=== PATIENT | male | born 1960 | race Caucasian/White ===

== ENCOUNTER 2020-09-19 06:59 | Outpatient (CLI) | payer MEDICARE, SELFPAY ==
[2020-09-19 07:25] LABS: Basophils Percent Auto 0.5 % (0.2-1.2); Eosinophils Absolute Auto 0.1 K/mm3 (0-0.3); Eosinophils Percent Auto 1.5 % (0-4.4); Hematocrit 48.4 % (42.0-52.0); Hemoglobin 16.4 g/dL (14.0-18.0); Immature Granulocyte Absolute 0.02 K/mm3 (0.00-0.031); Immature Granulocyte Percent A 0.3 % (0-0.5); Lymphocytes Absolute Auto 2.37 K/mm3 (0.9-3.2); Lymphocytes Percent Auto 40.4 % (18.3-44.2); Mean Corpuscular HGB Conc 33.9 g/dl (32-36); Mean Corpuscular Hemoglobin 30.4 pg (26-34); Mean Corpuscular Volume 89.6 fl (80-100); Mean Platelet Volume 8.8 fl (7.4-10.4); Monocytes Absolute Auto 0.5 K/mm3 (0.1-0.6); Monocytes Percent Auto 8.5 % (2.6-8.5); Neutrophils Absolute Auto 2.9 K/mm3 (1.3-6.7); Neutrophils Percent Auto 48.8 % (45.5-73.1); Platelet Count Result 195 k/mm3 (150-375); Red Cell Distribution Width 12.2 % (11.5-14.5); White Blood Count 5.9 K/mm3 (4.5-10.0)
[2020-09-19 07:39] LABS: Alanine Aminotransferase 14 U/L (4-50); Albumin Level 4.1 g/dL (3.5-5.1); Alkaline Phosphatase 73 U/L (38-126); Anion Gap 3 mmol/L (8-16); Aspartate Amino Transferase 23 U/L (17-59); Bilirubin,Total 0.5 mg/dL (0.2-1.3); Blood Urea Nitrogen 17 mg/dL (9-20); Calcium 9.1 mg/dL (8.4-10.2); Carbon Dioxide 31 mmol/L (22-30); Chloride 106 mmol/L (98-107); Estimated Glomerular Filt Rate > 60; Glucose 100 mg/dL (75-110); Potassium 4.3 mmol/L (3.4-5.0); Sodium 140 mmol/L (137-145)
[2020-09-19 08:08] LABS: Prostate Specific Antigen 1.8 ng/mL (< OR = 4.0)
== END 2020-09-19 07:00 | disposition home or self-care (01) ==
PROVIDERS: PCP Internal Medicine; Visit Provider Clinical Nurse Specialist
DX: M79.651 Pain in right thigh (principal); Z13.228 Encounter for screening for other metabolic disorders; Z12.5 Encounter for screening for malignant neoplasm of prostate
CPT/HCPCS: 36415; 80053; 84153; 85025; G0103

== ENCOUNTER 2020-10-01 09:31 | Outpatient (CLI) | payer MEDICARE, SELFPAY ==
--- NOTE | 2020-10-01 09:43 | EST_ITS ---
Patient Info Name: Jaun Molina Age: 60 years : 1960 Gender: Male Ht: 70 in Wt: 220 lbs BSA: 2.25 m2 Technical Quality: Good Exam Date: 10/01/2020 10:09 AM Exam Location: [facility] Patient Status: Outpatient Admit Date: 10/01/2020 Staff Ordering Physician: Valerie Limon NP Clinical Science Liaison: Zechariah Murrieta RDCS, RT Attending Provider: Referring Physician: Ashly MULLINS; Exercise Technologist: Blanche Calle CT Exercise Physician: Kendell Rivera DO Exam Type: CA stress echo Study Info Indications R07.89 - Other chest pain Treadmill exercise stress echocardiogram is performed. Summary 1. 1. Negative Jaun exercise stress test for ischemic ST changes by ECG criteria. 2. 2. Mildly reduced functional capacity, achieving 8.9 METs of workload. 3. 3. Appropriate HR response to exercise. 4. 4. Appropriate HR recovery at 1 minute post exercise. 5. 5. Negative stress echocardiogram for ischemia by wall motion analysis. 6. 6. Patient informed of the above results. Stress Echo Findings Left Ventricle Appropriate increase in LV endocardial thickeing with systole. Appropriate augmentation of contractility with systole. No wall motion abnormality. Left Ventricle Normal LV systolic function, no wall motion abnormality. Protocol: Jaun Stress ECG Details Stage: REST Duration (min): 9 min : 50 sec Speed (mph): 0.0 Grade (%): 0 HR (bpm): 79 SBP (mmHg): 120 DBP (mmHg): 72 METS: --- Stage: STAGE 1 Duration (min): 1 min : 0 sec Speed (mph): 1.7 Grade (%): 10 HR (bpm): 106 SBP (mmHg): 120 DBP (mmHg): 72 METS: --- Stage: STAGE 1 Duration (min): 2 min : 0 sec Speed (mph): 1.7 Grade (%): 10 HR (bpm): 114 SBP (mmHg): 120 DBP (mmHg): 72 METS: --- Stage: STAGE 1 Duration (min): 3 min : 0 sec Speed (mph): 1.7 Grade (%): 10 HR (bpm): 118 SBP (mmHg): 165 DBP (mmHg): 85 METS: --- Stage: STAGE 2 Duration (min): 1 min : 0 sec Speed (mph): 2.5 Grade (%): 12 HR (bpm): 125 SBP (mmHg): 165 DBP (mmHg): 85 METS: --- Stage: STAGE 2 Duration (min): 2 min : 0 sec Speed (mph): 2.5 Grade (%): 12 HR (bpm): 132 SBP (mmHg): 172 DBP (mmHg): 81 METS: --- Stage: STAGE 2 Duration (min): 3 min : 0 sec Speed (mph): 2.5 Grade (%): 12 HR (bpm): 137 SBP (mmHg): 172 DBP (mmHg): 81 METS: --- Stage: STAGE 3 Duration (min): 1 min : 0 sec Speed (mph): 3.4 Grade (%): 14 HR (bpm): 147 SBP (mmHg): 177 DBP (mmHg): 82 METS: --- Stage: STAGE 3 Duration (min): 1 min : 1 sec Speed (mph): 0.0 Grade (%): 0 HR (bpm): 146 SBP (mmHg): 177 DBP (mmHg): 82 METS: --- Stage: RECOVERY Duration (min): 0 min : 58 sec Speed (mph): 0.0 Grade (%): 0 HR (bpm): 115 SBP (mmHg): 177 DBP (mmHg): 82 METS: --- Stage: RECOVERY Duration (min): 1 min : 58 sec Speed (mph): 0
== END 2020-10-01 09:32 | disposition home or self-care (01) ==
PROVIDERS: PCP Internal Medicine; Visit Provider Nurse Practitioner
DX: R07.9 Chest pain, unspecified (principal)
CPT/HCPCS: 93351

== ENCOUNTER 2020-12-04 07:53 | Outpatient (CLI) | payer MEDICARE, SELFPAY ==
--- NOTE | ~2020-12-04 | MR_ITS ---
EXAMINATION: MR cervical spine wo con DATE: 12/04/2020 09:12 INDICATION: Cervical radiculopathy. TECHNIQUE: Magnetic resonance imaging (MRI) of the cervical spine was performed without intravenous c ontrast. Sequences included sagittal T2-weighted FSE, sagittal T2-weighted FS FSE, sagittal T1-weight ed FSE, axial MERGE, and axial T2-weighted FSE. COMPARISON: Cervical spine MRI 02/23/2019 FINDINGS: Bone alignment is normal. Vertebral body heights are normal. There is mildly decreased disc height at C4-C5 and moderately decreased disc height at C5-C6 and C6-C7. There is increased T2-weigh dajuan signal intensity in the spinal cord involving the north matter at C5-C6, consistent with myelomala sharif. The following disc levels are specifically discussed: C2-C3: The disc does not extend beyond the endplate margin. There is mild bilateral uncovertebral lisa nt osteoarthritis. There is mild bilateral facet joint osteoarthritis. There is no neural foraminal s tenosis. There is no central canal stenosis. C3-C4: The disc is bulging. There is moderate bilateral uncovertebral joint osteoarthritis. There is mild bilateral facet joint osteoarthritis. There is mild right and moderate left neural foraminal uri nosis. There is mild central canal stenosis. C4-C5: The disc is bulging. There is severe bilateral uncovertebral joint osteoarthritis. There is no facet joint osteoarthritis. There is moderate bilateral neural foraminal stenosis. There is moderate central canal stenosis with ventral and dorsal indentation of the spinal cord. C5-C6: The disc is bulging. There is severe bilateral uncovertebral joint osteoarthritis. There is no facet joint osteoarthritis. There is severe bilateral neural foraminal stenosis. There is moderate c entral canal stenosis with ventral and dorsal indentation of spinal cord. C6-C7: The disc is bulging. There is severe bilateral uncovertebral joint osteoarthritis. There is mo derate facet joint osteoarthritis. There is moderate bilateral neural foraminal stenosis. There is no central canal stenosis. C7-T1: The disc does not extend beyond the endplate margin. There is no uncovertebral joint osteoarth ritis. There is mild bilateral facet joint osteoarthritis. There is no neural foraminal stenosis. The re is no central canal stenosis. IMPRESSION: 1. Myelomalacia at C5-C6. 2. Severe cervical spondylosis, stable from 02/23/2019. Reviewed, dictated and finalized at location B.
== END 2020-12-04 07:54 | disposition home or self-care (01) ==
PROVIDERS: PCP Internal Medicine; Visit Provider Nurse Practitioner Adult Health
DX: G95.89 Other specified diseases of spinal cord (principal); M47.23 Other spondylosis with radiculopathy, cervicothoracic region; M48.03 Spinal stenosis, cervicothoracic region
CPT/HCPCS: 72141

== ENCOUNTER 2022-03-17 10:36 | Emergency (ER) | payer MEDICARE, SELFPAY ==
[2022-03-17] VITALS (12 sets, daily range): BP systolic 113–130; BP diastolic 77–87; PULSE 61–87; RESP 14–29; TEMP 36.6; O2SAT 97–100
--- NOTE | ~2022-03-17 | XR_ITS ---
EXAMINATION: XR hand RT min 3V DATE: 03/17/2022 12:13 INDICATION: Right hand pain and swelling. TECHNIQUE: 3 views of right hand were obtained. COMPARISON: Right knee radiographs 03/03/2006 FINDINGS: Bone alignment is normal. No fracture. There is mild osteoarthritis of distal radioulnar sandra int, second and third metacarpophalangeal joints, and some of the interphalangeal joints. IMPRESSION: 1. Mild polyarticular osteoarthritis. Reviewed, dictated and finalized at location A.
--- NOTE | 2022-03-17 10:42 | ECG_ITS ---
Measurements Intervals [place] Rate: 60 P: 25 WY: 144 QRS: -19 QRSD: 103 T: 27 QT: 395 QTc: 395 Interpretive Statements SINUS RHYTHM WITH SINUS ARRHYTHMIA NO PREVIOUS ECG AVAILABLE FOR COMPARISON Electronically Signed On 03-17-2022 12:40:37 CDT by Alberto Us M.D.
[2022-03-17 10:54] LABS: Basophils Percent Auto 0.3 % (0.2-1.2); Eosinophils Absolute Auto 0.1 K/mm3 (0-0.3); Eosinophils Percent Auto 0.5 % (0-4.4); Hematocrit 47.8 % (42.0-52.0); Hemoglobin 16.5 g/dL (14.0-18.0); Immature Granulocyte Absolute 0.02 K/mm3 (0.00-0.031); Immature Granulocyte Percent A 0.2 % (0-0.5); Lymphocytes Absolute Auto 2.82 K/mm3 (0.9-3.2); Lymphocytes Percent Auto 24.5 % (18.3-44.2); Mean Corpuscular HGB Conc 34.5 g/dl (32-36); Mean Corpuscular Hemoglobin 30.7 pg (26-34); Mean Corpuscular Volume 88.8 fl (80-100); Monocytes Absolute Auto 0.7 K/mm3 (0.1-0.6); Monocytes Percent Auto 6.2 % (2.6-8.5); Neutrophils Absolute Auto 7.9 K/mm3 (1.3-6.7); Neutrophils Percent Auto 68.3 % (45.5-73.1); Platelet Count Result 230 k/mm3 (150-375); Red Blood Count 5.38 M/mm3 (4.6-6.20); Red Cell Distribution Width 12.5 % (11.5-14.5); White Blood Count 11.5 K/mm3 (4.5-10.0)
[2022-03-17 11:51] LABS: Alanine Aminotransferase 20 U/L (6-50); Albumin Level 4.5 g/dL (3.5-5.1); Alkaline Phosphatase 86 U/L (38-126); Anion Gap 9 mmol/L (8-16); Aspartate Amino Transferase 28 U/L (17-59); Bilirubin,Total 0.6 mg/dL (0.2-1.3); Blood Urea Nitrogen 17 mg/dL (9-20); Calcium 9.7 mg/dL (8.4-10.2); Carbon Dioxide 26 mmol/L (22-30); Chloride 103 mmol/L (98-107); Estimated CRCL calculation 88 ml/min; Estimated Glomerular Filt Rate > 60; Glucose 97 mg/dL (65-110); Potassium 4.5 mmol/L (3.4-5.0); Sodium 138 mmol/L (137-145)
--- NOTE | 2022-03-17 11:59 | ED.SYNCOPE ---
HPI - Syncope General Chief Complaint: Syncope Stated Complaint: passed out, head injury Time Seen by Provider: 03/17/22 11:13 History of Present Illness HPI narrative: This is a 61-year-old male who denies past medical history, who presents emergency department after loss of consciousness last night. He states he was seated on the toilet, straining to have a bowel movement, when he stood, became lightheaded and flushed and lost consciousness. He states he woke on the floor after hitting his face in the shower. He states after short time, he was able to stand and walk on his own. He was evaluated by EMS at that time but was not brought to the emergency department. He currently complains of mild right hand pain and lower lip pain. Related Data Home Medications Medication Instructions Recorded Confirmed acetaminophen 500 mg tablet 500 mg PO Q6H PRN 07/28/19 10/02/20 (Tylenol Extra Strength) camphor-methyl salicylate-menthol applic topical 07/28/19 10/02/20 topical cream ibuprofen PO 08/23/19 10/02/20 naproxen sodium [Aleve] PO 08/23/19 10/02/20 Allergies Allergy/AdvReac Type Severity Reaction Status Date / Time No Known Allergies Allergy Verified 08/23/19 09:41 Review of Systems Review of Systems: CONSTITUTIONAL: Denies fever, chills, or sweats. EYES: Denies visual changes, redness, or discharge. ENT: Denies rhinorrhea, congestion, sore throat, or otalgia. CARDIOVASCULAR: Denies chest pain, palpitations, or edema. RESPIRATORY: Denies cough or dyspnea. GASTROINTESTINAL: Denies abdominal pain, nausea, vomiting, or diarrhea. GENITOURINARY: Denies dysuria or hematuria. SKIN: Denies rash or itching. MUSCULOSKELETAL: Right hand pain, denies back pain, joint pain, or myalgia. NEUROLOGIC: Denies headache, numbness, dizziness, or weakness. PSYCHIATRIC: Denies anxiety or depression. [facility] Past Medical History Medical History (Updated 03/18/22 @ 00:00 by Background Daemon) Arthritis of hip Degenerative disc disease Femur fracture, right Headache Hernia Nausea & vomiting Right thigh pain Varicose vein of leg Vision abnormalities Surgical History Surgical History (Updated 08/23/19 @ 15:28 by Emmy D. Avery, RT(R)) History of vascular surgery Lower extremity surgery planned Family History Family History Mother Patient's mother is in good health Father Family history unknown Sibling Family history of congestive heart failure Sibling Pancreatic cancer Social History Social History (Updated 08/23/19 @ 15:29 by Emmy Avery, RT(R)) Smoking status: Current some day smoker Tobacco type: cigars Alcohol intake: never Exam Narrative: GENERAL: Well-appearing, well-nourished, and in no acute distress. HEAD: Normocephalic, atraumatic. EYES: PERRLA and EOMI. ENT: Chipped right front incisor without r, healing mucosal laceration of the lower lip just right of midline without crossing the vermilion border, nares clear, no rhinorrhea or epistaxis. Mucous membranes moist. Oropharynx without tonsillar hypertrophy exudate or other lesions. NECK: Supple. No adenopathy or masses. No carotid bruits or JVD CHEST: Clear to auscultation. No respiratory distress. No wheezes rales or rhonchi HEART: Regular rate and rhythm. No murmur heard. Normal peripheral pulses. ABDOMEN: Soft, nontender, nondistended, normal active bowel sounds. EXTREMITIES: Normal range of motion. No edema. SKIN: Warm, dry, no rash. NEURO: No focal deficits. Alert and oriented x3. Strength 5 out of 5 in all extremities, sensation intact in all extremities PSYCH: Normal mood and affect. Course Vital Signs Vital signs: Vital Signs Temperature 97.9 F 03/17/22 10:42 Pulse Rate 77 03/17/22 10:42 Respiratory Rate 18 03/17/22 10:42 Blood Pressure 123/81 03/17/22 10:42 Pulse Oximetry 100 03/17/22 10:42 Oxygen Delivery Room Air 03/17/22 10:42 T
== END 2022-03-17 13:38 | disposition home or self-care (01) ==
PROVIDERS: Emergency Provider Preventive Medicine Aerospace Medicine; PCP Internal Medicine
DX: R55 Syncope and collapse (principal); S01.511A Laceration without foreign body of lip, initial encounter; M79.641 Pain in right hand; M16.10 Unilateral primary osteoarthritis, unspecified hip; F17.290 Nicotine dependence, other tobacco product, uncomplicated; M19.042 Primary osteoarthritis, left hand; W01.198A Fall on same level from slipping, tripping and stumbling with subsequent striking against other object, initial encounter
CPT/HCPCS: 36415; 73130; 80053; 85025; 93005; 99284

== ENCOUNTER 2022-04-01 06:41 | Outpatient (CLI) | payer MEDICARE, SELFPAY ==
--- NOTE | ~2022-04-01 | MR_ITS ---
EXAMINATION: MR brain/brain stem wo/w con DATE: 04/01/2022 07:36 INDICATION: Syncope. TECHNIQUE: Magnetic resonance imaging (MRI) of the brain and brainstem was performed without and with 20 mL MultiHance intravenous contrast. COMPARISON: Brain MRI 03/05/2017 FINDINGS: There are scattered areas of nonspecific increased T2-weighted signal intensity in the cere bral white matter, which is within normal limits for the patient's age. There is no intracranial hemo rrhage, acute infarction, or abnormal intracranial mass lesion. The ventricles are normal in size. Th ere is mild mucosal thickening in the ethmoid sinuses. The orbits are normal. The mastoid air cells a re normal. IMPRESSION: 1. Normal brain. Reviewed, dictated and finalized at location A. IMPRESSION: 1. Normal brain.
== END 2022-04-01 06:42 | disposition home or self-care (01) ==
PROVIDERS: PCP Internal Medicine; Visit Provider Clinical Nurse Specialist
DX: R55 Syncope and collapse (principal)
CPT/HCPCS: 70553; A9577

== ENCOUNTER 2022-04-07 09:31 | Outpatient (CLI) | payer MEDICARE, SELFPAY ==
--- NOTE | 2022-04-07 09:55 | ECHO_ITS ---
Patient Info Name: Jaun Molina Age: 61 years : 1960 Gender: Male Ht: 70 in Wt: 220 lbs BSA: 2.25 m2 HR: 63 bpm BP: 126 / 83 mmHg Technical Quality: Good Exam Date: 04/07/2022 10:16 AM Exam Location: [facility] Patient Status: Outpatient Admit Date: 04/07/2022 Staff Ordering Physician: Leigh Ann Cai Malted Milk Supervisor: Issac Taylor RDCS Attending Provider: Leigh Ann Cai Referring Physician: Trell MONTOYA; Exam Type: CA echo doppler color flow Study Info Indications R55 - Syncope and collapse Complete two-dimensional, color flow and Doppler transthoracic echocardiogram is performed. Summary 1. Complete two-dimensional, color flow and Doppler transthoracic echocardiogram is performed. 2. Left ventricular chamber dimension is normal. 3. Left ventricular systolic function is normal, estimated at 55-60%. 4. The left ventricular diastolic function is grade I diastolic dysfunction. 5. E/e' 6 is not elevated. Left Ventricle E/e' 6 is not elevated. Left ventricular chamber dimension is normal. Left ventricular systolic function is normal, estimated at 55-60%. The left ventricular diastolic function is grade I diastolic dysfunction. Right Ventricle Right ventricular systolic function is normal and with normal TAPSE 1.9 cm. Right ventricular chamber dimension is normal. Left Atria Left atrial chamber dimension is normal. Right Atria Right atrial chamber dimension is normal. Aortic Valve The aortic valve is trileaflet. There is no aortic valve stenosis. There is no aortic valve regurgitation. Pulmonic Valve There is no pulmonic regurgitation. Mitral Valve There is no mitral valve stenosis. There is no mitral valve regurgitation. Tricuspid Valve There is no tricuspid valve regurgitation. Pericardium/Pleural There is no pericardial effusion. Inferior Vena Cava Normal inferior vena cava with >50% collapse upon inspiration consistent with normal right atrial pressure, 5 mmHg. Aorta The aortic root size at the sinus of Valsalva is normal. Left Ventricular Outflow Tract Name Value Normal LVOT 2D LVOT Diameter 2.0 cm LVOT Doppler LVOT Peak Gradient 2 mmHg LVOT Mean Gradient 1 mmHg LVOT VTI 17 cm LVOT VTI/AV VTI Ratio 0.9 LVOT Stroke Volume 56 ml LVOT CO 3.4 l/min LVOT CI 1.5 l/min/m2 Mitral Valve Name Value Normal MV Doppler MV Peak Gradient 2 mmHg MV Mean Gradient 0 mmHg MV Decel [place] 282 cm/s2 MV PHT 43 ms MV Area (PHT) 5
== END 2022-04-07 09:32 | disposition home or self-care (01) ==
PROVIDERS: PCP Internal Medicine; Visit Provider Clinical Nurse Specialist
DX: R55 Syncope and collapse (principal)
CPT/HCPCS: 93306

== ENCOUNTER 2022-04-30 00:17 | Day surgery (SDC) | payer MEDICARE, SELFPAY ==
[2022-04-13 13:49] VITALS: BMI 31.6
--- NOTE | 2022-04-29 15:23 | PM.HPGS ---
History of Present Illness History of Present Illness Consent: Risks, benefits, and alternatives have been discussed and questions answered. Patient agrees to proceed with procedure. Chief complaint: hx of colon polyps Narrative: Jaun Molina is a 61 year old male here for colon cancer screening. Six years ago he had removal of 3 tubular adenomas. Review of Systems Review of Systems: All systems reviewed & are unremarkable except as noted in HPI and below PMFSH Past Medical History Medical History Arthritis of hip Degenerative disc disease Femur fracture, right Headache Hernia Nausea & vomiting Right thigh pain Varicose vein of leg Vision abnormalities Surgical History Surgical History History of vascular surgery Lower extremity surgery planned Family History Family History Mother Patient's mother is in good health Father Family history unknown Sibling Family history of congestive heart failure Sibling Pancreatic cancer Social History Social History Years smoked: 25 Smoking status: Current every day smoker Tobacco type: cigars Additional smoking assessment comments: 2 cigars a day Alcohol intake: never Substance use type: does not use Living arrangements: with family Spiritual care concerns: No Meds Home Medications and Allergies Home Medications Medication Instructions Recorded Confirmed Type acetaminophen 500 mg tablet 500 mg PO Q6H PRN Pain 07/28/19 04/13/22 History (Tylenol Extra Strength) camphor-methyl salicylate-menthol 1 applic topical DAILY 07/28/19 04/13/22 History topical cream ibuprofen 600 mg tablet 600 mg PO TID 04/13/22 04/13/22 History naproxen sodium 220 mg capsule 220 mg PO BID 04/13/22 04/13/22 History (Aleve) pregabalin 50 mg capsule 50 mg PO DAILY 04/13/22 04/13/22 History Allergies Allergy/AdvReac Type Severity Reaction Status Date / Time No Known Allergies Allergy Verified 04/30/22 07:36 Exam Const: General: alert Orientation/consciousness: patient oriented x3 Resp: Auscultation: clear to auscultation bilaterally Cardio: Rhythm: regular rhythm GI: GI Palp: Yes Soft to palpation and No Tenderness to palpation present (GI) Neuro: General: patient oriented x3 Assessment and Plan Assessment and plan (1) Screening for colon cancer: Code(s): Z12.11 - Encounter for screening for malignant neoplasm of colon Status: Acute Assessment and Plan: Colonoscopy with possible biopsy or polypectomy or cautery or injection of substances.
[2022-04-30 07:37] VITALS: BP 107/74; PULSE 75; RESP 18; TEMP 36.5; O2SAT 98
[2022-04-30] MEDS: LACTATED RINGERS 1,000 ML 150 ML IV CONT (07:45)
--- NOTE | 2022-04-30 08:12 | P.PNAN_ITS ---
Anes - Initial Pre Proc Eval Procedure: Operation Date: 04/30/22 08:30 Proposed Procedures p Screening Colonoscopy - Germán Berkowitz MD Date/Time: 04/30/22 08:12 Surgeon: Germán Berkowitz MD Pre Op Diagnosis: hx of colon polyps Patient Data Age: 61 Gender: M Height: 1.78 m Weight: 96.2 kg Last Vital Signs Temp 97.7 F 04/30/22 07:37 Pulse 75 04/30/22 07:37 Resp 18 04/30/22 07:37 BP 107/74 04/30/22 07:37 Pulse Ox 98 04/30/22 07:37 O2 Del Method Room Air 04/30/22 07:37 Allergies Allergy/AdvReac Type Severity Reaction Status Date / Time No Known Allergies Allergy Verified 04/30/22 07:36 Home Medications Medication Instructions Recorded Confirmed Type acetaminophen 500 mg tablet 500 mg PO Q6H PRN Pain 07/28/19 04/13/22 History (Tylenol Extra Strength) camphor-methyl salicylate-menthol 1 applic topical DAILY 07/28/19 04/13/22 History topical cream ibuprofen 600 mg tablet 600 mg PO TID 04/13/22 04/13/22 History naproxen sodium 220 mg capsule 220 mg PO BID 04/13/22 04/13/22 History (Aleve) pregabalin 50 mg capsule 50 mg PO DAILY 04/13/22 04/13/22 History Patient hx anesthesia problems: none Family hx anesthesia problems: none Results Review: All pre-operative results and documents have been reviewed as part of the pre- operative evaluation. [facility] Past Medical History Medical History Arthritis of hip Degenerative disc disease Femur fracture, right Headache Hernia Nausea & vomiting Right thigh pain Varicose vein of leg Vision abnormalities Surgical History Surgical History History of vascular surgery Lower extremity surgery planned Family History Family History Mother Patient's mother is in good health Father Family history unknown Sibling Family history of congestive heart failure Sibling Pancreatic cancer Social History Social History Years smoked: 25 Smoking status: Current every day smoker Tobacco type: cigars Additional smoking assessment comments: 2 cigars a day Alcohol intake: never Substance use type: does not use Living arrangements: with family Spiritual care concerns: No Anes - Eval Final PreProcedure Day of Procedure 04/30/22 08:12 Patient weight: normal Heart: regular rate and rhythm Lungs: clear to auscultation Airway: Mallampati scale class II Neurological: alert and oriented Last oral intake: >/= 8 hours ASA classification: II Emergent: no Anesthetic plan: proceed Anesthesia type and monitoring: general GIVS and standard monitoring Results Review: All pre-operative results and documents have been reviewed as part of the pre- operative evaluation. Informed Consent: The patient's anesthetic plan and its attendant risks and benefits were discussed with the patient/family/POA. Questions were solicited and answers provided to the satisfaction of the patient/family/POA.
[2022-04-30 08:58] VITALS: BP 102/74; PULSE 57; RESP 23; O2SAT 95
[2022-04-30 09:08] VITALS: BP 120/82; PULSE 61; RESP 22; O2SAT 97
[2022-04-30 09:18] VITALS: BP 130/78; PULSE 68; RESP 19; O2SAT 100
== END 2022-04-30 09:30 | disposition home or self-care (01) ==
PROVIDERS: PCP Internal Medicine; Visit Provider Internal Medicine Gastroenterology
PROC: 0DJD8ZZ Inspection of Lower Intestinal Tract, Via Natural or Artificial Opening Endoscopic (ICD-10-PCS; CPT 45378; principal; 2022-04-30 08:30)
DX: Z12.11 Encounter for screening for malignant neoplasm of colon (principal); D12.2 Benign neoplasm of ascending colon; D12.5 Benign neoplasm of sigmoid colon; D12.3 Benign neoplasm of transverse colon; K57.30 Diverticulosis of large intestine without perforation or abscess without bleeding; K63.5 Polyp of colon; M19.90 Unspecified osteoarthritis, unspecified site; F17.210 Nicotine dependence, cigarettes, uncomplicated
CPT/HCPCS: 45380; 45385; 88305; J2704; J7120

== ENCOUNTER → 2023-03-30 11:54 | Outpatient (CLI) | payer MEDICARE, SELFPAY ==
--- NOTE | ~2023-03-30 | XR_ITS ---
EXAMINATION: XR thoracic spine 3V DATE: 03/30/2023 12:11 INDICATION: Back pain TECHNIQUE: AP, lateral and lateral swimmer's views of the thoracic spine were obtained. COMPARISON: None. FINDINGS: Bone alignment is normal. There is no fracture. The vertebral body heights are maintained. There is mild loss of intervertebral disc space height at a few levels in the thoracic spine. Small d egenerative osteophytes project from the anterior endplates of multiple vertebral bodies. IMPRESSION: 1. Mild thoracic spondylosis without acute findings. Reviewed, dictated and finalized at location B.
== END ==
PROVIDERS: PCP Internal Medicine; Visit Provider Clinical Nurse Specialist
DX: M54.50 Low back pain, unspecified (principal); M43.04 Spondylolysis, thoracic region
CPT/HCPCS: 72072

== ENCOUNTER 2024-01-04 15:24 | Outpatient (CLI) | payer MEDICARE, SELFPAY ==
--- NOTE | ~2024-01-04 | XR_ITS ---
Lumbosacral Spine: AP and lateral views Clinical History: Pain COMPARISON: 10/01/2010 Findings: The normal lordotic curve is maintained. Osseous alignment is unchanged from prior exam. Th ere is severe facet arthropathy at L3-L4, L4-L5, L5-S1. There are moderate degenerative disc change a t L5-S1 and L4-L5.. The sacroiliac joints are normally outlined. Impression: Severe degenerative spondylosis of the lower lumbar spine. Additional degenerative changes, as above. Reviewed, dictated and finalized at location M. Impression: Severe degenerative spondylosis of the lower lumbar spine. Additional degenerat kishan changes, as above.
== END 2024-01-04 15:25 ==
LOC: GOSHIMG 15:24
PROVIDERS: PCP Internal Medicine; Visit Provider Clinical Nurse Specialist
DX: M47.26 Other spondylosis with radiculopathy, lumbar region (principal)
CPT/HCPCS: 72100

== ENCOUNTER 2024-01-07 13:25 | Outpatient (CLI) | payer MEDICARE, SELFPAY ==
--- NOTE | ~2024-01-07 | MR_ITS ---
Procedure: MR lumbar spine wo con Ordering provider: JING Schreiber History: . M54.16 - Radiculopathy, lumbar region . Comparison: None. Technique: MRI lumbar spine without contrast. FINDINGS: SPINAL CORD: Normal. The cord ends at the level of L1. VERTEBRAL BODIES: Normal height and alignment. No compression fracture. Normal marrow signal. DISK SPACES: Narrowing of the disc L5-S1. STENOSIS: Diffuse disc bulge at the level of L3-L4 with mild to moderate stenosis and bilateral narro wing of the foramina. Right nerve root compression. Diffuse disc bulge at the level of L4-L5 with bilateral narrowing of the foramina. Bilateral nerve ro ot compression. Annular tear seen at the level of L4-L5 Mild diffuse disc bulge with central protrusion at the level of L5-S1. Left narrowing root compressio n. Comparison is seen bilaterally. PARASPINOUS SOFT TISSUES: Normal. IMPRESSION: No compression fracture or stenosis of the lumbar spine. Multilevel disc bulges with variable nerve root compression. Mild to moderate spinal canal stenosis o f the level of L3-L4. Reviewed, dictated and finalized at location A. IMPRESSION: No compression fracture or stenosis of the lumbar spine. Multilevel disc bulges with variable nerve root compression. Mild to moderate s michelle canal stenosis of the level of L3-L4.
== END 2024-01-07 13:26 ==
LOC: GOSHIMG 13:26
PROVIDERS: PCP Internal Medicine; Visit Provider Clinical Nurse Specialist
DX: M48.061 Spinal stenosis, lumbar region without neurogenic claudication (principal); G54.8 Other nerve root and plexus disorders
CPT/HCPCS: 72148

== ENCOUNTER 2024-07-07 08:33 | Outpatient (CLI) | payer MEDICARE, SELFPAY ==
[2024-07-07 13:51] LABS: Basophils Percent Auto 0.7 % (0.2-1.2); Eosinophils Absolute Auto 0.1 K/mm3 (0-0.3); Eosinophils Percent Auto 1.9 % (0-4.4); Hemoglobin 15.3 g/dL (14.0-18.0); Immature Granulocyte Absolute 0.01 K/mm3 (0.00-0.031); Immature Granulocyte Percent A 0.2 % (0-0.5); Lymphocytes Absolute Auto 1.91 K/mm3 (0.9-3.2); Lymphocytes Percent Auto 35.5 % (18.3-44.2); Mean Corpuscular HGB Conc 32.6 g/dl (32-36); Mean Corpuscular Hemoglobin 30.4 pg (26-34); Mean Corpuscular Volume 93.3 fl (80-100); Mean Platelet Volume 9.2 fl (7.4-10.4); Monocytes Absolute Auto 0.5 K/mm3 (0.1-0.6); Monocytes Percent Auto 8.9 % (2.6-8.5); Neutrophils Absolute Auto 2.8 K/mm3 (1.3-6.7); Neutrophils Percent Auto 52.8 % (45.5-73.1); Platelet Count Result 235 k/mm3 (150-375); Red Blood Count 5.04 M/mm3 (4.6-6.20); Red Cell Distribution Width 13.1 % (11.5-14.5); White Blood Count 5.4 K/mm3 (4.5-10.0)
[2024-07-07 13:58] LABS: Alanine Aminotransferase 23 U/L (6-50); Albumin Level 4.1 g/dL (3.5-5.1); Alkaline Phosphatase 82 U/L (38-126); Anion Gap 5 mmol/L (4-12); Aspartate Amino Transferase 48 U/L (17-59); Bilirubin,Total 0.5 mg/dL (0.2-1.3); Blood Urea Nitrogen 18 mg/dL (9-20); Calcium 9.2 mg/dL (8.4-10.2); Carbon Dioxide 31 mmol/L (22-30); Chloride 104 mmol/L (98-107); Cholesterol 224 mg/dL (0-200); Estimated Glomerular Filt Rate > 60; Glucose 83 mg/dL (65-110); HDL Direct 41 mg/dL; Potassium 4.6 mmol/L (3.4-5.0); Sodium 140 mmol/L (137-145); Triglycerides 316 mg/dL (<150)
[2024-07-07 14:10] LABS: LDL Cholesterol Direct 114 mg/dL
[2024-07-07 14:29] LABS: Prostate Specific Antigen 0.7 ng/mL (< OR = 4.0)
== END 2024-07-07 08:34 | disposition home or self-care (01) ==
PROVIDERS: PCP Internal Medicine; Visit Provider Nurse Practitioner
DX: Z12.5 Encounter for screening for malignant neoplasm of prostate (principal); E78.5 Hyperlipidemia, unspecified
CPT/HCPCS: 36415; 80053; 80061; 84153; 85025; G0103

== ENCOUNTER 2025-07-10 00:32 | Day surgery (SDC) | payer MEDICARE, SELFPAY ==
[2025-06-20 10:46] VITALS: BMI 33.0
[2025-07-10 06:24] VITALS: BP 117/81; PULSE 80; RESP 18; TEMP 36.2; O2SAT 100
[2025-07-10] MEDS: LACTATED RINGERS 1,000 ML 150 ML IV CONT (06:33)
--- NOTE | 2025-07-10 06:47 | WPDANESEPPF ---
Anes - Initial Pre Proc Eval Procedure: Operation Date: 07/10/25 07:30 Proposed Procedures p Screening Colonoscopy - Lucho Vazquez MD Date/Time: 07/10/25 06:47 Surgeon: Lucho Vazquez MD Pre Op Diagnosis: Personal history of colon polyps, unspecified Patient Data Age: 64 Gender: M Height: 1.78 m Weight: 105.3 kg Last Vital Signs Temp 97.1 F L 07/10/25 06:24 Pulse 80 07/10/25 06:24 Resp 18 07/10/25 06:24 BP 117/81 07/10/25 06:24 Pulse Ox 100 07/10/25 06:24 O2 Del Method Room Air 07/10/25 06:24 Allergies Allergy/AdvReac Type Severity Reaction Status Date / Time No Known Allergies Allergy Verified 07/10/25 06:22 Home Medications ?Medication ?Instructions ?Recorded ?Confirmed ?Type acetaminophen 500 mg tablet 500 mg PO Q6H PRN Pain 07/28/19 06/20/25 History (Tylenol Extra Strength) camphor-methyl salicylate-menthol 1 applic topical DAILY 07/28/19 06/20/25 History topical cream gabapentin 300 mg capsule 300 mg PO DAILY 03/30/23 06/20/25 History ibuprofen 600 mg tablet 600 mg PO TID PRN pain 03/30/23 06/20/25 History atorvastatin 10 mg tablet 10 mg PO QHS #90 tabs 07/13/24 06/20/25 Rx Patient hx anesthesia problems: none Family hx anesthesia problems: none Results Review: All pre-operative results and documents have been reviewed as part of the pre-operative evaluation. [facility] Past Medical History Medical History Smoking addiction Right knee DJD Degenerative joint disease of left knee Left knee pain Nausea & vomiting Vision abnormalities Headache Arthritis of hip Femur fracture, right Right thigh pain Varicose vein of leg Degenerative disc disease Hernia Surgical History Surgical History History of vascular surgery Lower extremity surgery planned Family History Family History Mother Patient's mother is in good health Father Family history unknown Sibling Family history of congestive heart failure Sibling Pancreatic cancer Social History Social History Years smoked: 25 Smoking status: Current every day smoker Tobacco type: e-cigarettes/vaping Additional smoking assessment comments: 2 cigars a day Alcohol intake: never Substance use type: does not use Lack of Transportation: No Lack of Food: Never True Current Housing: I Have Housing Living arrangements: alone Spiritual care concerns: No Anes - Eval Final PreProcedure Day of Procedure 07/10/25 06:47 Patient weight: obese Lungs: normal air movement Airway: Mallampati scale class II and special considerations (Upper incisors chipped, missing many on lower aspect. ) Neurological: alert and oriented Last oral intake: >/= 8 hours ASA classification: II Emergent: no Anesthetic plan: proceed Anesthesia type and monitoring: general GIVS and standard monitoring Results Review: All pre-operative results and documents have been reviewed as part of the pre-operative evaluation. Hyperlipidemia, vapes daily and did vape this am. Informed Consent: The patient's anesthetic plan and its attendant risks and benefits were discussed with the patient/family/POA. Questions were solicited and answers provided to the satisfaction of the patient/family/POA.
--- NOTE | 2025-07-10 07:26 | PM.IMHP2 ---
H&P: HPI History of Present Illness Date/Time: 07/10/25 07:26 Chief Complaint: History of colon polyps Narrative: The patient has a history of colonic polyps, the last colonoscopy was 3 years ago. 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 Left knee pain Nausea & vomiting Vision abnormalities Headache Arthritis of hip Femur fracture, right Right thigh pain Varicose vein of leg Degenerative disc disease Hernia Surgical History Surgical History History of vascular surgery Lower extremity surgery planned Family History Family History Mother Patient's mother is in good health Father Family history unknown Sibling Family history of congestive heart failure Sibling Pancreatic cancer Social History Social History Years smoked: 25 Smoking status: Current every day smoker Tobacco type: e-cigarettes/vaping Additional smoking assessment comments: 2 cigars a day Alcohol intake: never Substance use type: does not use Lack of Transportation: No Lack of Food: Never True Current Housing: I Have Housing Living arrangements: alone Spiritual care concerns: No Meds Home Medications and Allergies Home Medications ?Medication ?Instructions ?Recorded ?Confirmed ?Type acetaminophen 500 mg tablet 500 mg PO Q6H PRN Pain 07/28/19 06/20/25 History (Tylenol Extra Strength) camphor-methyl salicylate-menthol 1 applic topical DAILY 07/28/19 06/20/25 History topical cream gabapentin 300 mg capsule 300 mg PO DAILY 03/30/23 06/20/25 History ibuprofen 600 mg tablet 600 mg PO TID PRN pain 03/30/23 06/20/25 History atorvastatin 10 mg tablet 10 mg PO QHS #90 tabs 07/13/24 06/20/25 Rx Allergies Allergy/AdvReac Type Severity Reaction Status Date / Time No Known Allergies Allergy Verified 07/10/25 06:22 Vital Signs Vital Signs - 24 hr 07/10/25 06:24 Temperature 97.1 F L Pulse Rate 80 Respiratory Rate 18 Blood Pressure 117/81 Pulse Oximetry 100 Oxygen Delivery Room Air Exam Const: General: cooperative and healthy appearing Resp: Effort & Inspection: normal respiratory effort and able to speak in complete sentences Auscultation: clear to auscultation bilaterally Cardio: Rate: regular rate Rhythm: regular rhythm GI: Inspection: normal to inspection GI Palp: No No hepatosplenomegaly present Auscultation: normal bowel sounds Rectal Exam: deferred Skin: General skin exam: normal color Psych: Appearance: grossly normal Mental Status: mental status grossly normal Assessment and Plan Assessment and plan (1) History of colonic polyps: Code(s): Z86.0100 - Personal history of colon polyps, unspecified Status: Acute Assessment and Plan: The patient is deemed a good candidate for the procedure. Consent signed. Will proceed. Prior Studies I have reviewed the following patient records and this information was taken into consideration when formulating the assessment and plan.: previous labs, previous ER visits, previous hospitalizations and previous clinic visits
--- NOTE | 2025-07-10 07:50 | S_PTH ---
PATIENT: Jaun Molina LOC: [facility] U#:[id number] AGE/SX: 64/M ROOM: RE07/10/[address]: Lucho Vazquez MD : 1960 BED: DIS: 07/10/2025 SPEC #: [id number] RECD: 07/10/25 09:01 STATUS: MEI REJosé Miguel #: [id number] MOSES: 07/10/25 07:[address]: Lucho Vazquez DEPT: [facility] Surgical RECD BY: Yo Mckeon ENTERED: 07/10/25 09:01 SP TYPE: Surgical OTHR DR: Huang Bower DO Tissues: A - Colon Polypectomy B - Colon Polypectomy C - Colon Polypectomy Procedures: Hematoxylin and Eosin Stain Gross and Microscopic Level 4
[2025-07-10 08:08] VITALS: BP 106/70; PULSE 58; RESP 15; O2SAT 100
[2025-07-10 08:18] VITALS: BP 126/83; PULSE 64; RESP 20; O2SAT 100
[2025-07-10 08:28] VITALS: BP 126/88; PULSE 63; RESP 19; O2SAT 100
--- NOTE | 2025-07-10 09:38 | SUR.PHASEII ---
Patient verbally aggressive in recovery area. I discussed his discharge papers, provider recommendations etc. with him and his response is fuck that I'm not doing that. Patient stating it takes ten years for a polyp to turn into cancer, doesn't it? I instructed patient that is a question for the provider. To which he replied fuck this I'm not coming back. Patient discharged via wheelchair.
== END 2025-07-10 08:50 | disposition home or self-care (01) ==
PROVIDERS: PCP Internal Medicine; Referring Provider Internal Medicine Gastroenterology; Visit Provider Internal Medicine Gastroenterology
PROC: 0DJD8ZZ Inspection of Lower Intestinal Tract, Via Natural or Artificial Opening Endoscopic (ICD-10-PCS; CPT 45378; principal; 2025-07-10 07:30)
DX: Z12.11 Encounter for screening for malignant neoplasm of colon (principal); D12.2 Benign neoplasm of ascending colon; D12.3 Benign neoplasm of transverse colon; D12.4 Benign neoplasm of descending colon; K57.30 Diverticulosis of large intestine without perforation or abscess without bleeding; K64.8 Other hemorrhoids; F17.290 Nicotine dependence, other tobacco product, uncomplicated; E66.9 Obesity, unspecified; Z68.33 Body mass index [BMI] 33.0-33.9, adult
CPT/HCPCS: 45385; 88305; J2003; J2704; J7120